=== PATIENT | male | born 1950 | race Caucasian/White ===

== ENCOUNTER 2019-06-22 15:32 | Inpatient (IN) | payer BC ==
[~2019-06-22] VITALS: Ht 175.3 cm; Wt 86.6 kg
[2019-06-22 15:47] VITALS: BP_SYST 139
[2019-06-22] MEDS ORDERED: NS 1000 ML IV.SOLN IV ONE (16:00)
[2019-06-22] MEDS ORDERED: VANCOMYCIN HCL 1,000 MG in D5W 250 ML IV ONE (16:00)
[2019-06-22] MEDS ORDERED: PIPERACILLIN/TAZO 3.38 GM in D5W 50 ML IV ONE (16:00)
[2019-06-22] MEDS ORDERED: PIPERACILLIN/TAZOBACTAM 3.375 GM/VIAL (ZOSYN) IV ONE (16:31)
[2019-06-22] MEDS ORDERED: VANCOMYCIN HCL 1000 MG/VIAL IV ONE (16:32)
[2019-06-22] MEDS ORDERED: ONDANSETRON HCL 4 MG/2 ML VIAL IVP ONE (16:45)
[2019-06-22] MEDS ORDERED: ACETAMINOPHEN 325 MG TABLET PO ONE (16:45)
[2019-06-22] MEDS ORDERED: MORPHINE 2 MG/ML INJ. SYRINGE IVP ONE (16:45)
[2019-06-22 16:51] LABS: HEMATOCRIT 41.6 % (36-54); HEMOGLOBIN 13.4 g/dL (14.0-18.0); MEAN CORPUSCULAR HEMOGLOBIN 29 pg (27-31); MEAN CORPUSCULAR HGB CONC 32 % (32-36); MEAN CORPUSCULAR VOLUME 90 fL (79.0-98.0); PLATELET COUNT (AUTO) 388 K/uL (130-430); RED BLOOD CELL COUNT(AUTO) 4.61 MIL/uL (4.2-6.2); RED CELL DISTRIBUTION WIDTH 15.2 % (9.0-15.0); WHITE BLOOD COUNT (AUTO) 6.8 K/uL (4.8-10.8)
[2019-06-22 16:56] LABS: CREATININE 1.41 mg/dL (0.55-1.30); POTASSIUM 4.7 mmol/L (3.5-5.1)
[2019-06-22 17:00] LABS: ALBUMIN 3.2 g/dL (3.4-4.8); TOTAL BILIRUBIN 0.6 mg/dL (0.0-1.0)
[2019-06-22 17:25] LABS: BILIRUBIN,URINE NEGATIVE (NEGATIVE); BLOOD, URINE 2+ (NEGATIVE); CLARITY/URINE CLOUDY (CLEAR); COLOR,URINE YELLOW (YELLOW); GLUCOSE,URINE 3+ (NEGATIVE); KETONES,URINE NEGATIVE (NEGATIVE); LEUKOCYTE ESTERASE ,URINE 2+ (NEGATIVE); NITRITE, URINE NEGATIVE (NEGATIVE); PROTEIN URINE TRACE (NEGATIVE); UROBILINOGEN,URINE 0.2 (0.2-1.0)
[2019-06-22 17:34] LABS: BAND % (MANUAL) 23 % (0-6); BASOPHILS % (MANUAL) 0 % (0-2); EOSINOPHILS % (MANUAL) 1 % (0-7); LYMPHOCYTES % (MANUAL) 5 % (20-46); MONOCYTES % (MANUAL) 1 % (0-11)
[2019-06-22 18:06] LABS: WBC,URINE 20-50 /HPF (0-3)
[2019-06-22] MEDS ORDERED: FLUT1BLS3 INH (18:06)
[2019-06-22] MEDS ORDERED: SEMA0.25 SQ (18:06)
[2019-06-22] MEDS ORDERED: ATOR40TA68 PO (18:06)
[2019-06-22] MEDS ORDERED: GLIP10TA11 PO (18:06)
[2019-06-22] MEDS ORDERED: ASPI-1155 PO (18:06)
[2019-06-22] MEDS ORDERED: EMPA1TAB7 PO (18:06)
[2019-06-22] MEDS ORDERED: LISI-600 PO (18:06)
[2019-06-22] MEDS ORDERED: FLUT16SP16 NS (18:06)
[2019-06-22 18:07] LABS: BACTERIA,URINE MODERATE /HPF (None Seen); MUCUS,URINE None Seen /LPF (None Seen)
[2019-06-22] MEDS ORDERED: NACL 0.9% 1,000 ML IV ONE ×2 (19:45→21:45)
[2019-06-22] MEDS ORDERED: CEFEPIME 2 GM in D5W 100 ML IV ONE (21:00)
[2019-06-22] MEDS ORDERED: CEFEPIME 1 GM/VIAL (MAXIPIME) ONE (21:32)
[2019-06-22] MEDS ORDERED: ALBUTEROL SULFATE 0.083% 2.5 MG/3 ML VIAL.NEB INH PRN (23:00)
[2019-06-22] MEDS ORDERED: ONDANSETRON HCL 4 MG/2 ML VIAL IVP PRN (23:00)
[2019-06-22] MEDS ORDERED: MORPHINE 2 MG/ML INJ. SYRINGE IVP PRN (23:00)
[2019-06-22 23:21] VITALS: BP_SYST 133
[2019-06-23] VITALS (7 sets, daily range): BP systolic 99–140
[2019-06-23] MEDS: NACL 0.9% 1,000 ML IV SCH ×3 (00:49→16:46)
[2019-06-23] MEDS: INSULIN REGULAR, HUMAN 100 UNITS/ML, 10 ML VIAL (humuLIN R) SUBCUT PRN ×3 (05:48→21:43)
[2019-06-23] MEDS: ALBUTEROL SULFATE 0.083% 2.5 MG/3 ML VIAL.NEB INH SCH ×3 (07:00→19:38)
[2019-06-23] MEDS: BUDESONIDE 0.5 MG/2 ML AMPUL.NEB INH SCH ×2 (07:00→19:46)
[2019-06-23 07:21] LABS: BASOPHILS # (AUTO) 0.1 K/uL (0.0-0.2); BASOPHILS % (AUTO) 0.5 % (0.0-2.0); EOSINOPHILS # (AUTO) 0.1 K/uL (0.0-0.4); EOSINOPHILS % (AUTO) 0.4 % (0.0-4.0); HEMATOCRIT 36.7 % (36-54); HEMOGLOBIN 11.8 g/dL (14.0-18.0); LYMPHOCYTES # (AUTO) 0.6 K/uL (1.0-5.5); LYMPHOCYTES % (AUTO) 4.3 % (20.5-51.5); MEAN CORPUSCULAR HEMOGLOBIN 29 pg (27-31); MEAN CORPUSCULAR HGB CONC 32 % (32-36); MEAN CORPUSCULAR VOLUME 90 fL (79.0-98.0); NEUTROPHILS # (AUTO) 13.2 K/uL (1.8-7.7); NEUTROPHILS % (AUTO) 87.8 % (40.0-70.0); PLATELET COUNT (AUTO) 343 K/uL (130-430); RED BLOOD CELL COUNT(AUTO) 4.07 MIL/uL (4.2-6.2); RED CELL DISTRIBUTION WIDTH 15.5 % (9.0-15.0)
[2019-06-23 07:30] LABS: ALANINE AMINOTRANSFERASE 26 U/L (12-78); ALBUMIN 2.2 g/dL (3.4-4.8); ANION GAP 12 (5-15); ASPARTATE AMINOTRANSFERASE 13 U/L (10-37); CALCIUM 7.9 mg/dL (8.4-11.0); CHLORIDE 105 mmol/L (98-107); CREATININE 1.12 mg/dL (0.55-1.30); GLUCOSE 151 mg/dL (70-99); POTASSIUM 4.2 mmol/L (3.5-5.1); SODIUM SERUM 137 mmol/L (136-145); TOTAL BILIRUBIN 0.5 mg/dL (0.0-1.0); UREA NITROGEN, BLOOD 12 mg/dL (8-21)
[2019-06-23 07:52] LABS: GFR AFRICAN AMERICAN 84 mL/min (>90)
[2019-06-23] MEDS ORDERED: FLUTICASONE/VILANTEROL 1 EACH BLST.W.DEV INH SCH (09:00)
[2019-06-23] MEDS: ASPIRIN 81 MG TAB.CHEW PO SCH (09:21)
[2019-06-23] MEDS: CEFEPIME 2 GM in D5W 100 ML IV SCH ×2 (09:22→21:20)
[2019-06-23] MEDS: FLUTICASONE PROPIONATE 50 mCg/SPRAY 16 GM NS SCH (10:26)
[2019-06-23] MEDS: GENTAMICIN SULFATE IV SCH (13:40)
[2019-06-23] MEDS: NS IV SCH (13:40)
[2019-06-23] MEDS: TEMAZEPAM 15 MG CAPSULE PO PRN (21:19)
[2019-06-23] MEDS: ATORVASTATIN 20 MG TABLET PO SCH (21:19)
[2019-06-24] MEDS: NACL 0.9% 1,000 ML IV SCH ×4 (00:11→14:50)
[2019-06-24 00:12] VITALS: BP_SYST 148
[2019-06-24] MEDS: ALBUTEROL SULFATE 0.083% 2.5 MG/3 ML VIAL.NEB INH SCH ×4 (01:00→19:50)
[2019-06-24 06:36] LABS: BASOPHILS # (AUTO) 0.1 K/uL (0.0-0.2); BASOPHILS % (AUTO) 0.8 % (0.0-2.0); EOSINOPHILS # (AUTO) 0.2 K/uL (0.0-0.4); EOSINOPHILS % (AUTO) 1.8 % (0.0-4.0); HEMATOCRIT 33.7 % (36-54); HEMOGLOBIN 10.8 g/dL (14.0-18.0); LYMPHOCYTES # (AUTO) 1.1 K/uL (1.0-5.5); LYMPHOCYTES % (AUTO) 8.9 % (20.5-51.5); MEAN CORPUSCULAR HEMOGLOBIN 29 pg (27-31); MEAN CORPUSCULAR HGB CONC 32 % (32-36); MEAN CORPUSCULAR VOLUME 89 fL (79.0-98.0); MONOCYTES # (AUTO) 1.1 K/uL (0.0-1.0); MONOCYTES % (AUTO) 8.9 % (1.7-9.3); NEUTROPHILS # (AUTO) 9.7 K/uL (1.8-7.7); NEUTROPHILS % (AUTO) 79.6 % (40.0-70.0); PLATELET COUNT (AUTO) 327 K/uL (130-430); RED BLOOD CELL COUNT(AUTO) 3.78 MIL/uL (4.2-6.2); RED CELL DISTRIBUTION WIDTH 15.4 % (9.0-15.0); WHITE BLOOD COUNT (AUTO) 12.2 K/uL (4.8-10.8)
[2019-06-24 06:50] LABS: ALBUMIN 2.1 g/dL (3.4-4.8); CALCIUM 7.9 mg/dL (8.4-11.0); CREATININE 0.91 mg/dL (0.55-1.30); POTASSIUM 3.8 mmol/L (3.5-5.1); TOTAL BILIRUBIN 0.4 mg/dL (0.0-1.0)
[2019-06-24] MEDS: BUDESONIDE 0.5 MG/2 ML AMPUL.NEB INH SCH ×2 (07:35→19:50)
[2019-06-24] MEDS: ASPIRIN 81 MG TAB.CHEW PO SCH (08:23)
[2019-06-24] MEDS: CEFEPIME 2 GM in D5W 100 ML IV SCH ×2 (08:24→20:42)
[2019-06-24] MEDS: FLUTICASONE PROPIONATE 50 mCg/SPRAY 16 GM NS SCH (08:24)
[2019-06-24] MEDS: INSULIN REGULAR, HUMAN 100 UNITS/ML, 10 ML VIAL (humuLIN R) SUBCUT PRN ×2 (11:18→20:50)
[2019-06-24 12:00] VITALS: BP_SYST 156
[2019-06-24] MEDS: GENTAMICIN SULFATE IV SCH (13:30)
[2019-06-24] MEDS: NS IV SCH (13:30)
[2019-06-24 16:00] VITALS: BP_SYST 129
[2019-06-24 20:10] VITALS: BP_SYST 146
[2019-06-24] MEDS: ATORVASTATIN 20 MG TABLET PO SCH (20:43)
[2019-06-24] MEDS: TEMAZEPAM 15 MG CAPSULE PO PRN (20:43)
[2019-06-25 00:45] VITALS: BP_SYST 145
[2019-06-25] MEDS: ALBUTEROL SULFATE 0.083% 2.5 MG/3 ML VIAL.NEB INH SCH ×2 (01:15→07:00)
[2019-06-25] MEDS: NACL 0.9% 1,000 ML IV SCH ×3 (04:10→08:14)
[2019-06-25] MEDS: BUDESONIDE 0.5 MG/2 ML AMPUL.NEB INH SCH (07:00)
[2019-06-25 07:10] LABS: CALCIUM 8.1 mg/dL (8.4-11.0); CREATININE 0.9 mg/dL (0.55-1.30); POTASSIUM 3.8 mmol/L (3.5-5.1)
[2019-06-25 08:00] VITALS: BP_SYST 133
[2019-06-25] MEDS: ASPIRIN 81 MG TAB.CHEW PO SCH (08:12)
[2019-06-25] MEDS: CEFEPIME 2 GM in D5W 100 ML IV SCH (08:12)
[2019-06-25] MEDS: FLUTICASONE PROPIONATE 50 mCg/SPRAY 16 GM NS SCH (08:13)
[2019-06-25] MEDS ORDERED: CEPH-568 PO (09:21)
[2019-06-25 10:01] VITALS: BP_SYST 133
== END 2019-06-25 11:07 | disposition home or self-care (01) | DRG 871 ==
LOC: SED 15:32 → SIC 21:00 → STU 23:10
PROVIDERS: ADMIT Internal Medicine; ATTEND Internal Medicine
DX: A41.50 Gram-negative sepsis, unspecified (principal); N17.0 Acute kidney failure with tubular necrosis; E43 Unspecified severe protein-calorie malnutrition; N10 Acute pyelonephritis; K27.9 Peptic ulcer, site unspecified, unspecified as acute or chronic, without hemorrhage or perforation; E11.9 Type 2 diabetes mellitus without complications; I10 Essential (primary) hypertension; E78.5 Hyperlipidemia, unspecified; J45.909 Unspecified asthma, uncomplicated; Z83.3 Family history of diabetes mellitus; Z85.038 Personal history of other malignant neoplasm of large intestine; Z88.8 Allergy status to other drugs, medicaments and biological substances; Z79.899 Other long term (current) drug therapy; Z79.82 Long term (current) use of aspirin
CPT/HCPCS: 36415; 71045; 76770; 80048; 80053; 80170-TC; 81000-TC; 82962; 83605; 83690-TC; 84484; 85007; 85025; 85027; 85610-TC; 85730-TC; 87040-TC; 87081; 87086; 87186-TC; 93306; 94640; 94760; 96361; 96365; 96366; 96367; 96375; 99285; G0378; J0692; J1580; J1815; J2270; J2405; J2543; J3370; J7030; J7040; J7060; J7613; J7626

== ENCOUNTER 2020-11-13 14:39 | Inpatient (IN) | payer OTHER, SELFPAY ==
[~2020-11-13] VITALS: Ht 175.3 cm; Wt 89.4 kg
[~2020-11-13 14:39] MED LIST: ASPI-1155 PO; ATOR40TA68 PO; CEPH-568 PO; EMPA1TAB7 PO; FLUT16SP16 NS; FLUT1BLS3 INH; GLIP10TA11 PO; LISI20TA30 PO; SEMA0.25 SQ
[2020-11-13 14:57] VITALS: BP_SYST 150
--- NOTE | 2020-11-13 15:04 | NUR ---
Placed in room 04 . Placed on nuclear monitoring technician, blood pressure machine and pulse oximeter. To gown for exam. Side rails up.
--- NOTE | 2020-11-13 15:10 | NUR ---
Blood collected and sent to lab.
--- NOTE | 2020-11-13 15:10 | NUR ---
# 20 gauge angiocath placed to LFA. Use of asceptic technique. Opsite placed over site. Blood return noted. Blood for lab drawn from site. Flushed with 10 cc of normal saline. No evidence of infiltration noted. Patient tolerated well.
[2020-11-13] MEDS ORDERED: NACL 0.9% 1,000 ML IV ONE (15:30)
[2020-11-13] MEDS ORDERED: ACETAMINOPHEN 650 MG SUPP.RECT RC ONE (15:30)
[2020-11-13] MEDS ORDERED: cefTRIAXone 1 GM IVPB PREMIX 50 ML IV ONE (15:30)
--- NOTE | 2020-11-13 15:44 | NUR ---
xray at bedside.
[2020-11-13 15:46] LABS: BASOPHILS % (AUTO) 0.3 % (0.0-2.0); EOSINOPHILS # (AUTO) 0.1 K/uL (0.0-0.4); HEMATOCRIT 43.2 % (36-54); HEMOGLOBIN 14.1 g/dL (14.0-18.0); LYMPHOCYTES # (AUTO) 0.5 K/uL (1.0-5.5); LYMPHOCYTES % (AUTO) 3.8 % (20.5-51.5); MEAN CORPUSCULAR HEMOGLOBIN 30 pg (27-31); MEAN CORPUSCULAR HGB CONC 33 % (32-36); MEAN CORPUSCULAR VOLUME 91 fL (79.0-98.0); MONOCYTES # (AUTO) 0.7 K/uL (0.0-1.0); MONOCYTES % (AUTO) 5.1 % (1.7-9.3); NEUTROPHILS # (AUTO) 12.7 K/uL (1.8-7.7); NEUTROPHILS % (AUTO) 89.8 % (40.0-70.0); PLATELET COUNT (AUTO) 224 K/uL (130-430); RED BLOOD CELL COUNT(AUTO) 4.76 MIL/uL (4.2-6.2); RED CELL DISTRIBUTION WIDTH 14.8 % (9.0-15.0); WHITE BLOOD COUNT (AUTO) 14.2 K/uL (4.8-10.8)
[2020-11-13 15:55] LABS: CALCIUM 8.6 mg/dL (8.4-11.0); CREATININE 1.07 mg/dL (0.55-1.30); POTASSIUM 4.2 mmol/L (3.5-5.1)
--- NOTE | 2020-11-13 15:59 | NUR ---
off to ct via wheelchair. no distress
[2020-11-13 16:02] LABS: ALBUMIN 3.6 g/dL (3.4-4.8); TOTAL BILIRUBIN 0.9 mg/dL (0.0-1.0)
--- NOTE | 2020-11-13 17:55 | NUR ---
URINE SENT, CALM, ALERT, NO DISTRESS
[2020-11-13 18:22] LABS: BILIRUBIN,URINE NEGATIVE (NEGATIVE); BLOOD, URINE NEGATIVE (NEGATIVE); CLARITY/URINE CLEAR (CLEAR); COLOR,URINE YELLOW (YELLOW); GLUCOSE,URINE 3+ (NEGATIVE); KETONES,URINE 1+ (NEGATIVE); LEUKOCYTE ESTERASE ,URINE NEGATIVE (NEGATIVE); NITRITE, URINE NEGATIVE (NEGATIVE); PH,URINE 7.5 (5.0-8.0); PROTEIN URINE NEGATIVE (NEGATIVE); UROBILINOGEN,URINE 0.2 (0.2-1.0)
--- NOTE | 2020-11-13 18:37 | NUR ---
CALM, ALERT, VSS, NO DISTRESS, PAIN TOLERABLE
--- NOTE | 2020-11-13 19:11 | NUR ---
DR IRELAND IN TO REASSESS
[2020-11-13] MEDS ORDERED: PIPERACILLIN/TAZO 3.38 GM in D5W 50 ML IV ONE (19:15)
[2020-11-13] MEDS ORDERED: PIPERACILLIN/TAZOBACTAM 3.375 GM/VIAL (ZOSYN) IV ONE ×2 (19:43→21:32)
--- NOTE | 2020-11-13 20:38 | NUR ---
Patient will be admitted to care of [facility]. Admitted to M/S unit. Will go to room 114. Belongings list completed. Complete and up to date summary report printed. SBAR report to be given at bedside with opportunity for questions.
[2020-11-13 20:40] VITALS: BP_SYST 120
[2020-11-13] MEDS ORDERED: PIPERACILLIN/TAZO 3.375/DEX-IS 50 ML IV SCH (21:00)
[2020-11-13] MEDS ORDERED: NALOXONE HCL 0.4 MG/ML AMP (NARCAN) IVP PRN (21:00)
[2020-11-13] MEDS ORDERED: HYDROcodone/ACETAMIN 5-325 MG TAB (NORCO/ VICODIN) PO PRN (21:00)
[2020-11-13] MEDS ORDERED: ALBUTEROL SULFATE 0.083% 2.5 MG/3 ML VIAL.NEB INH PRN (21:00)
[2020-11-13] MEDS ORDERED: ONDANSETRON HCL 4 MG/2 ML VIAL IVP PRN (21:00)
[2020-11-13] MEDS: ATORVASTATIN 20 MG TABLET PO SCH (21:41)
[2020-11-13] MEDS: MORPHINE 4 MG INJ. 4 MG/ML VIAL IVP PRN (21:45)
--- NOTE | 2020-11-13 21:45 | NUR ---
PAIN MGT PATIENT MEDICATED WITH MORPHINE FOR C/O ABDOMINAL PAIN. VITAL SIGNS STABLE. NS @ 100 ML/HR STARTED ORDERED. PATIENT ORIENTED TO ROOM, CALL LIGHT SYSTEM, BED AND TV CONTROLS. BED AT LOWEST LOCKED POSITION. PATIENT REFUSING ACTIVATION OF BED ALARM. PATIENT INSTRUCTED TO CALL FOR HELP OR ASSISTANCE IF NEEDED. CALL LIGHT WITH IN REACH.
[2020-11-13] MEDS: NACL 0.9% 1,000 ML IV SCH (21:46)
[2020-11-13 22:23] VITALS: BP_SYST 120
[2020-11-13] MEDS ORDERED: ALBUTEROL SULFATE 0.083% 2.5 MG/3 ML VIAL.NEB INH SCH (23:00)
[2020-11-13] MEDS: PIPERACILLIN/TAZO 3.375/DEX-IS 50 ML IV SCH (23:47)
--- NOTE | 2020-11-13 23:48 | NUR ---
BLOOD SUGAR/ATB PATIENT DUE ANTIBIOTIC INFUSING. IV LINE INTACT AND PATENT. ROUTINE FINGER STICK SUGAR 139. NO COVERAGE NEEDED.
[2020-11-14 01:41] VITALS: BP_SYST 116
[2020-11-14] MEDS: MORPHINE 4 MG INJ. 4 MG/ML VIAL IVP PRN ×4 (01:48→20:21)
--- NOTE | 2020-11-14 01:48 | NUR ---
PAIN MGT PATIENT MEDICATED WITH MORPHINE FOR C/O PAIN. VITAL SIGNS STABLE.
--- NOTE | 2020-11-14 03:25 | NUR ---
ROUNDS PATIENT RESTING IN BED.NO DISTRESS NOTED. CALL LIGHT WITHIN REACH.
[2020-11-14] MEDS: PIPERACILLIN/TAZO 3.375/DEX-IS 50 ML IV SCH ×3 (05:26→17:15)
--- NOTE | 2020-11-14 05:28 | NUR ---
ATB/BLD SUGAR PATIENT DUE ANTIBIOTIC INFUSING. ROUTINE FINGER STICK SUGAR 129. NO COVERAGE NEEDED. ASSISTED PATIENT OUT OF BED FOR RESTROOM USE.
--- NOTE | 2020-11-14 06:31 | NUR ---
CLOSING NOTES PATIENT NEEDS ATTENDED. PATIENT AWAKE IN BED WATCHING TV.
[2020-11-14 06:34] LABS: HEMATOCRIT 39.1 % (36-54); HEMOGLOBIN 12.7 g/dL (14.0-18.0); MEAN CORPUSCULAR HEMOGLOBIN 30 pg (27-31); MEAN CORPUSCULAR HGB CONC 33 % (32-36); MEAN CORPUSCULAR VOLUME 91 fL (79.0-98.0); PLATELET COUNT (AUTO) 190 K/uL (130-430); RED CELL DISTRIBUTION WIDTH 15.1 % (9.0-15.0)
[2020-11-14 07:04] LABS: ALBUMIN 2.9 g/dL (3.4-4.8); CALCIUM 7.8 mg/dL (8.4-11.0); CREATININE 1.11 mg/dL (0.55-1.30); POTASSIUM 3.9 mmol/L (3.5-5.1); TOTAL BILIRUBIN 1.2 mg/dL (0.0-1.0)
[2020-11-14] MEDS: BUDESONIDE 0.5 MG/2 ML AMPUL.NEB INH SCH ×2 (07:18→19:30)
--- NOTE | 2020-11-14 07:38 | NUR ---
OPENING NOTE RECEIVED REPORT FROM NIGHT RN. PATIENT IS ALERT AND ORIENTED X4, RESTING IN BED, ON ROOM AIR AND TOLERATING WELL WITH NO SIGNS OF SHORTNESS OF BREATH NOTED. IV IS PATENT, INFUSING FLUIDS ORDERED WITH NO SIGNS OF INFILTRATION NOTED. BED LOCKED AND IN LOWEST POSITION. CALL LIGHT WITHIN REACH. WILL CONTINUE TO MONITOR.
[2020-11-14 08:00] VITALS: BP_SYST 132
[2020-11-14] MEDS: lisinopriL 20 MG TABLET PO SCH (08:12)
[2020-11-14] MEDS: NACL 0.9% 1,000 ML IV SCH ×2 (08:12→17:15)
--- NOTE | 2020-11-14 08:18 | NUR ---
CONSULTATION PAGED/CALLED Reason for Consultation: [] GALLSTONES Person Who was Notified: [] ROSHAN Consulting Physician: [] DR Noelle COX Automatic Bandsaw Tender Specialty: [] GEN SURGEON Ordering Physician: [] DR DEL CASTILLO
[2020-11-14] MEDS: FLUTICASONE PROPIONATE 50 mCg/SPRAY 16 GM NS SCH (08:32)
[2020-11-14] MEDS ORDERED: FLUTICASONE/VILANTEROL 1 EACH BLST.W.DEV INH SCH (09:00)
[2020-11-14 09:31] LABS: BAND % (MANUAL) 21 % (0-6); LYMPHOCYTES % (MANUAL) 2 % (20-46)
[2020-11-14 09:32] LABS: BASOPHILS % (MANUAL) 0 % (0-2); EOSINOPHILS % (MANUAL) 0 % (0-7); MONOCYTES % (MANUAL) 2 % (0-11)
[2020-11-14 11:28] VITALS: BP_SYST 113
--- NOTE | 2020-11-14 11:30 | NUR ---
ACCUCHECK PATIENT'S BLOOD SUGAR 153. PATIENT NPO SO INSULIN HELD. ZOSYN IVPB ADMINISTERED. WILL MONITOR.
[2020-11-14] MEDS: ALBUTEROL SULFATE 0.083% 2.5 MG/3 ML VIAL.NEB INH SCH ×2 (13:00→19:30)
--- NOTE | 2020-11-14 15:08 | NUR ---
PAIN Patient complaining of abdominal pain. 12/05. Administered morphine 2 mg IVP PRN. Will monitor.
[2020-11-14 15:59] VITALS: BP_SYST 127
--- NOTE | 2020-11-14 18:30 | NUR ---
Closing note Patient is laying down in bed. On room air and tolerating well with no signs of shortness of breath noted. IV is patent, infusing NS at 100 ml/ hr. No signs of infiltration noted. C/O moderate abdominal pain. Patient is NPO. Bed locked and in lowest position. Call light within reach. All needs met throughout shift. Safety and fall precautions remain in place. Will endorse to night nurse.
--- NOTE | 2020-11-14 18:54 | NUR ---
DR. OSIEL CARTAGENA MADE ROUNDS. ORDERS FOR CLEAR LIQUID DIET, CBC IN AM, AND CT WITH CONTRAST. NOTED AND CARRIED OUT.
[2020-11-14] MEDS ORDERED: DIATR MEGLU/DIATRIZ SOD 30 ML SOLUTION PO ONE (19:26)
[2020-11-14 19:56] VITALS: BP_SYST 112
[2020-11-14] MEDS: ATORVASTATIN 20 MG TABLET PO SCH (20:17)
--- NOTE | 2020-11-14 20:21 | NUR ---
PAIN MGT PATIENT MEDICATED WITH MORPHINE FOR C/O RLQ PAIN. VITAL SIGNS STABLE.
--- NOTE | 2020-11-14 21:29 | NUR ---
CT PATIENT OUT OF ROOM FOR CT ABDOMEN WITH CONTRAST.
--- NOTE | 2020-11-14 21:52 | NUR ---
CT PATIENT BACK FROM CT. IVF RESUMED. PATIENT ENCOURAGED TO DRINK FLUIDS.
--- NOTE | 2020-11-14 22:58 | NUR ---
CT RESULTS PER CORY WEN RECEIVED CALL FOR CT RESULTS SHOWING FREE AIR ON DISTAL SIGMOID COLON AND RECTUM. WILL PAGED DR. CARTAGENA TO RELAY RESULTS. Addendum: 11/15/20 at 0336 by Meme Tomas RN PER CORY ANGULO SOFTWARE TEST DEVELOPER BETTYE
--- NOTE | 2020-11-14 23:04 | NUR ---
PAGED DR. OSIEL FATIMA I SPOKE WITH GLADYS COX IS CUSTOMER LEADER AT THIS MOMENT
--- NOTE | 2020-11-14 23:04 | NUR ---
MD DR. CARTAGENA CALLED BACK MADE AWARE OF CT RESULTS REPORTED. PER MD KEEP PT NPO AND HE WILL CHECK THE FULL CT REPORT. PATIENT MADE AWARE OF MD ORDER.
[2020-11-14] MEDS ORDERED: metroNIDAZOLE 500 mg/NS 200 ML IV ONE (23:38)
[2020-11-14] MEDS: metroNIDAZOLE 500 mg/NS 100 ML IV SCH (23:43)
--- NOTE | 2020-11-14 23:43 | NUR ---
ATB PATIENT STARTED ON FLAGYL IV NEW ORDER FROM DR. CARTAGENA.
[2020-11-15] MEDS: PIPERACILLIN/TAZO 3.375/DEX-IS 50 ML IV SCH ×4 (00:47→17:01)
[2020-11-15 00:54] VITALS: BP_SYST 101
[2020-11-15] MEDS: MORPHINE 4 MG INJ. 4 MG/ML VIAL IVP PRN ×2 (01:00→07:35)
--- NOTE | 2020-11-15 01:00 | NUR ---
PAIN MGT PATIENT MEDICATED WITH MORPHINE FOR C/O RLQ ABDOMINAL PAIN. VITAL SIGNS STABLE. PATIENT ASSISTED OUT OF BED FOR REST ROOM USE.
[2020-11-15] MEDS: ALBUTEROL SULFATE 0.083% 2.5 MG/3 ML VIAL.NEB INH SCH ×4 (01:30→19:30)
--- NOTE | 2020-11-15 02:45 | NUR ---
ROUNDS PATIENT RESTING IN BED. IVF INFUSING. NO DISTRESS NOTED.
--- NOTE | 2020-11-15 04:33 | NUR ---
OOB ASSISTED PATIENT OUT OF BED FOR RESTROOM USE. COLLECTED MRSA NARES SCREEN PER PROTOCOL FOR POSSIBLE SURGERY TODAY.
[2020-11-15] MEDS: metroNIDAZOLE 500 mg/NS 100 ML IV SCH ×3 (05:08→21:33)
[2020-11-15] MEDS: NACL 0.9% 1,000 ML IV SCH ×3 (05:09→21:33)
--- NOTE | 2020-11-15 05:12 | NUR ---
ATB/BLD SUGAR PATIENT DUE ANTIBIOTIC INFUSING. AM ROUTINE FINGER STICK SUGAR 93. NO C/O PAIN AT THIS TIME.
--- NOTE | 2020-11-15 06:24 | NUR ---
CLOSING NOTES PATIENT KEPT NPO ORDERED. IVF INFUSING WITH IV LINE INTACT AND PATENT. BED IN LOWEST LOCKED POSITION. CALL LIGHT WITHIN REACH. PATIENT RESTING IN BED. NO DISTRESS NOTED.
[2020-11-15 06:42] LABS: BASOPHILS % (AUTO) 0.3 % (0.0-2.0); EOSINOPHILS # (AUTO) 0.1 K/uL (0.0-0.4); EOSINOPHILS % (AUTO) 0.4 % (0.0-4.0); HEMATOCRIT 34.5 % (36-54); HEMOGLOBIN 11.3 g/dL (14.0-18.0); LYMPHOCYTES # (AUTO) 0.8 K/uL (1.0-5.5); LYMPHOCYTES % (AUTO) 4.7 % (20.5-51.5); MEAN CORPUSCULAR HEMOGLOBIN 29 pg (27-31); MEAN CORPUSCULAR HGB CONC 33 % (32-36); MEAN CORPUSCULAR VOLUME 90 fL (79.0-98.0); MONOCYTES # (AUTO) 0.9 K/uL (0.0-1.0); MONOCYTES % (AUTO) 5.2 % (1.7-9.3); NEUTROPHILS # (AUTO) 15.5 K/uL (1.8-7.7); NEUTROPHILS % (AUTO) 89.4 % (40.0-70.0); PLATELET COUNT (AUTO) 159 K/uL (130-430); RED BLOOD CELL COUNT(AUTO) 3.83 MIL/uL (4.2-6.2); RED CELL DISTRIBUTION WIDTH 14.9 % (9.0-15.0)
[2020-11-15 06:59] LABS: INR 1.1 (0.80-1.20); PROTHROMBIN TIME 11.6 SECS (9.5-12.5)
[2020-11-15] MEDS: BUDESONIDE 0.5 MG/2 ML AMPUL.NEB INH SCH ×2 (07:00→19:30)
[2020-11-15 08:00] VITALS: BP_SYST 126
[2020-11-15 08:05] LABS: WHITE BLOOD COUNT (AUTO) 17.4 K/uL (4.8-10.8)
[2020-11-15] MEDS: lisinopriL 20 MG TABLET PO SCH (08:11)
[2020-11-15] MEDS: FLUTICASONE PROPIONATE 50 mCg/SPRAY 16 GM NS SCH (08:12)
--- NOTE | 2020-11-15 11:14 | NUR ---
Accucheck Blood sugar 84. No insulin needed. Patient remains NPO, IV fluids running at 100 ml/hr. Will monitor.
--- NOTE | 2020-11-15 11:32 | NUR ---
Dr. Sam rounds Dr. Sam to see patient. Received orders to advance diet as tolerated, full liquid diet for today and solid foods to start tomorrow morning. Noted and carried out. Will monitor.
[2020-11-15 12:07] VITALS: BP_SYST 138
--- NOTE | 2020-11-15 12:53 | NUR ---
Dietitian Recommendations * Recommend: Full liquid CCHO diet, Glucerna TID. ONS provides 660 kcal, 30gm protein daily. * Recommend: advance diet when medically appropriate. * Recommend: CCHO diet * Consider: Glucerna BID if poor PO intake to better help meet nutrient needs. (ONS provides 360 kcals/day and 20g protein/day) Please see Nutritional Assessment for details.
--- NOTE | 2020-11-15 13:25 | NUR ---
Diarrhea Patient complaining of diarrhea. Stated that it is "normal" for him to have random diarrhea. Requesting imodium. Called Dr. Faust and received order for Imodium PRN for diarrhea. Noted and carried out. Will monitor.
[2020-11-15] MEDS: LOPERAMIDE HCL 2 MG CAPSULE PO PRN ×2 (13:30→17:07)
[2020-11-15 15:52] VITALS: BP_SYST 143
[2020-11-15] MEDS: INSULIN REGULAR, HUMAN 100 UNITS/ML, 10 ML VIAL (humuLIN R) SUBCUT PRN (17:07)
--- NOTE | 2020-11-15 18:45 | NUR ---
Closing note Patient is laying down in bed. On room air and tolerating well with no signs of shortness of breath noted. IV is patent, infusing NS at 100 ml/ hr. No signs of infiltration noted. C/O moderate abdominal pain. Patient tolerated lunch and dinner well. Patient C/O diarrhea. Bed locked and in lowest position. Call light within reach. All needs met throughout shift. Safety and fall precautions remain in place. Will endorse to night nurse.
--- NOTE | 2020-11-15 19:25 | NUR ---
Opening note Received SBAR report from STEVE Caban. Patient is awake, resting in bed, no distress, non labored breathing on room air. IVF infusing via IV to LFA. Bed is locked in lowest position, side rails up 2x, has been ambulating w/steady gait to restroom. Call light w/in reach.
[2020-11-15 20:20] VITALS: BP_SYST 143
--- NOTE | 2020-11-15 20:59 | NUR ---
S/W Dr. Pickering Informed patient is requesting a sleeping pill. She said she will enter medication order.
[2020-11-15] MEDS ORDERED: ZOLPIDEM TARTRATE 5 MG TABLET PO PRN (21:00)
[2020-11-15] MEDS: ATORVASTATIN 20 MG TABLET PO SCH (21:32)
--- NOTE | 2020-11-15 21:32 | NUR ---
Meds Due meds given, Hung new bag of NS and infusing well, no infiltration noted.
[2020-11-16] MEDS: PIPERACILLIN/TAZO 3.375/DEX-IS 50 ML IV SCH ×3 (00:20→12:45)
[2020-11-16] MEDS: LOPERAMIDE HCL 2 MG CAPSULE PO PRN ×3 (00:25→12:46)
[2020-11-16] MEDS: INSULIN REGULAR, HUMAN 100 UNITS/ML, 10 ML VIAL (humuLIN R) SUBCUT PRN ×2 (00:25→12:49)
--- NOTE | 2020-11-16 00:25 | NUR ---
Accucheck Accu-check done; result 155 mg/dL and covered w/2U Regular insulin per sliding scale. Administered Zosyn, infusing well. Patient requested sleeping pill and Ambien given; reviewed side effects and he verbalized understanding
[2020-11-16 00:50] VITALS: BP_SYST 122
[2020-11-16] MEDS: ALBUTEROL SULFATE 0.083% 2.5 MG/3 ML VIAL.NEB INH SCH ×3 (01:00→13:00)
--- NOTE | 2020-11-16 02:30 | NUR ---
Sleeping Patient is sleeping, snoring. No distress, symmetrical rise and fall of chest.
--- NOTE | 2020-11-16 04:05 | NUR ---
awake Patient is awake, IV alarming "air bubble"; assessed-cleared and resuming infusion. He is watching t.v. and states, he wishes sleeping pill would have kept him asleep longer. He requested a pitcher of ice water and has no further needs.
--- NOTE | 2020-11-16 05:47 | NUR ---
Resting Resting w/eyes closed, no distress. Hung Zosyn, infusing well, no sign of infiltration
[2020-11-16] MEDS: metroNIDAZOLE 500 mg/NS 100 ML IV SCH ×2 (06:37→14:10)
[2020-11-16] MEDS: BUDESONIDE 0.5 MG/2 ML AMPUL.NEB INH SCH (07:00)
[2020-11-16 08:00] VITALS: BP_SYST 137
[2020-11-16] MEDS: FLUTICASONE PROPIONATE 50 mCg/SPRAY 16 GM NS SCH (09:00)
[2020-11-16] MEDS: NACL 0.9% 1,000 ML IV SCH (10:18)
[2020-11-16] MEDS: lisinopriL 20 MG TABLET PO SCH (10:18)
[2020-11-16 12:44] VITALS: BP_SYST 150
[2020-11-16] MEDS ORDERED: LEVO500T89 PO (13:02)
[2020-11-16] MEDS ORDERED: METR500T PO (13:02)
--- NOTE | 2020-11-16 14:09 | NUR ---
ATTENDING MD DR DEL CASTILLO WAS CALLED, RE: TO INFORM THAT PT HAS NOT YET BEEN SEEN BY THE UROLOGIST DR SAGASTUME ORDERED BY THE GEN SURGEON DR Tegan CARTAGENA. SPOKE TO HENOK
--- NOTE | 2020-11-16 14:17 | NUR ---
GEN SURGEON DR Ita CARTAGENA WAS CALLED, RE: DISCHARGE CLEARANCE TO HOME. SPOKE TO
--- NOTE | 2020-11-16 14:23 | NUR ---
ANOTHER CALL WAS PUT TO THE ATTENDING MD, DR DEL CASTILLO, TO INFORM HIM THE ANTIBIOTICS ORDERED BY DR CARTAGENA FOR HOME. Addendum: 11/16/20 at 1426 by Cari Garza SD/ SPOKE TO HENOK.
--- NOTE | 2020-11-16 16:20 | NUR ---
closingnotes pt was d/c as per dr solano. was cleared by dr solomon and was d/ic as per dr garcia. ivl and id band was removed. discharged paper discussed with patient. was escorted by freedom pascual and ambulated. denies pain and no osb noted.
== END 2020-11-16 16:20 | disposition home or self-care (01) | DRG 872 ==
LOC: SED 14:39 → SMU 19:28
PROVIDERS: ADMIT Internal Medicine Hospice and Palliative Medicine; ATTEND Internal Medicine Hospice and Palliative Medicine
DX: A41.9 Sepsis, unspecified organism (principal); N39.0 Urinary tract infection, site not specified; E11.9 Type 2 diabetes mellitus without complications; E78.5 Hyperlipidemia, unspecified; Z20.822 Contact with and (suspected) exposure to COVID-19; N05.9 Unspecified nephritic syndrome with unspecified morphologic changes; I10 Essential (primary) hypertension; Z85.038 Personal history of other malignant neoplasm of large intestine; Z87.891 Personal history of nicotine dependence; Z79.82 Long term (current) use of aspirin; Z79.899 Other long term (current) drug therapy; Z88.8 Allergy status to other drugs, medicaments and biological substances; Z90.49 Acquired absence of other specified parts of digestive tract; Z86.73 Personal history of transient ischemic attack (TIA), and cerebral infarction without residual deficits
CPT/HCPCS: 36415; 71045; 76376; 76700-TC; 80053; 81003; 82962; 83605; 83690; 84484; 85007; 85025; 85027; 85610-TC; 85730-TC; 87040-TC; 87081; 87086; 93005; 94640; 94760; 96365; 96367; 99285; J0696; J1815; J2270; J2543; J3490; J7613; J7626; Q9964; Q9967